=== PATIENT | female | born 1985 | race Caucasian/White ===

== ENCOUNTER 2016-11-06 20:43 | Emergency (ER) ==
[2016-11-06 20:48] VITALS: BP 127/87; TEMP 98.4; BMI 28.3
--- NOTE | 2016-11-06 21:23 | ED.PDOC ---
General ED Provider: Dr. NIKO REDDY Chief Complaint: Hand Laceration Stated Complaint: cut to rt hand, has tdap 2 years ago,. Time Seen by Physician: 21:21 Mode of Arrival: Walk-In Information Source: Patient Primary Care Provider: MIKE GUAJARDO Nursing and Triage Documentation Reviewed and Agree: Yes Skin Complaint Exam - Laceration/Upper Ext. Complaint/Exam Location of Injury: Right Mechanism of Injury: Laceration Symptoms Are: Still present Initial Severity: Mild Current Severity: Mild Aggravating: Movement Associated Signs and Symptoms: Denies: Fever, Chills, Erythema, Numbness, Tingling Differential Diagnoses: Laceration Review of Systems - Review Of Systems Constitutional: Reports: No symptoms Eyes: Reports: No symptoms Ears, Nose, Mouth, Throat: Reports: No symptoms Respiratory: Reports: No symptoms Cardiac: Reports: No symptoms GI: Reports: No symptoms : Reports: No symptoms Musculoskeletal: Reports: No symptoms Skin: Reports: No symptoms Neurological: Reports: No symptoms Endocrine: Reports: No symptoms Hematologic/Lymphatic: Reports: No symptoms All Other Systems: Reviewed and Negative Past Medical History - Past Medical History Previously Healthy: Yes Endocrine: Reports: None Cardiovascular: Reports: None Respiratory: Reports: None Hematological: Reports: None Gastrointestinal: Reports: None Genitourinary: Reports: None Neuro/Psych: Reports: None Musculoskeletal: Reports: None Cancer: Reports: None Last Menstrual Period: 10/11/16 - Surgical History General Surgical History: Reports: Cholecystectomy, Tonsillectomy, Orthopedic ( ankle ) - Family History Family History: Reports: None - Social History Smoking Status: Current every day smoker Smoking Cessation Counseling Time: > 3 min - 10 min Hx Substance Use: No Alcohol Screening: Occasionally - Immunizations Tetanus Shot up to Date: Yes (2014) Physical Exam - Physical Exam Appearance: Well-appearing, No pain distress, Well-nourished Eyes: VANIA, EOMI, Conjunctiva clear ENT: Ears normal, Nose normal, Oropharynx normal Respiratory: Airway patent, Breath sounds clear, Breath sounds equal, Respirations nonlabored Cardiovascular: RRR, Pulses normal, No rub, No murmur GI/: Soft, Nontender, No masses, Bowel sounds normal, No Organomegaly Musculoskeletal: Normal strength, ROM intact, No edema, No calf tenderness Skin: Warm, Dry, Normal color Neurological: Sensation intact, Motor intact, Reflexes intact, Cranial nerves intact, Alert, Oriented Psychiatric: Affect appropriate, Mood appropriate Procedures - Laceration/Wound Repair No standard instances Wound Description: Linear Wound Length (cm): 2 cm Wound Width: 0.2 cm Wound Explored: Clean Wound Prep: Saline Wound Repaired With: Dermabond Critical Care Note - Critical Care Note Total Time (mins): 0 Course - Course Vital Signs: Temp Pulse Resp BP Pulse Ox 11/06/16 20:44 98.4 F 91 H 20 127/87 98 Departure - Departure Time of Disposition: 21:23 Disposition: HOME SELF-CARE Discharge Problem: Laceration of hand Instructions: Laceration (ED) Condition: Stable Pt referred to PMD for follow-up: Yes Additional Instructions: Tylenol prn Rest If not better come back Allergies/Adverse Reactions: Allergies No Known Allergies Allergy (Verified 11/06/16 20:48) Home Medications: Ambulatory Orders 1 [No Reported Medications] 11/06/16 Disposition Discussed With: Patient
== END 2016-11-06 22:00 | disposition home or self-care (01) ==
LOC: ED 20:43
DX: S61.411A Laceration without foreign body of right hand, initial encounter (principal); W45.8XXA Other foreign body or object entering through skin, initial encounter; F17.210 Nicotine dependence, cigarettes, uncomplicated
CPT/HCPCS: 99283

== ENCOUNTER 2018-03-24 13:51 | Outpatient (CLI) ==
--- NOTE | 2018-03-24 23:10 | MRI ---
EXAM: MRI lumbar spine without IV contrast. DATE: 03/24/2018. HISTORY: Right-sided back pain. Right-sided pain. Burning into the right thigh. TECHNIQUE: Sagittal and axial T1W and T2W sequences of the lumbar spine along with sagittal IR and c oronal T2W sequences were obtained using 0.2 Rachel magnet. No IV contrast. COMPARISON: None. FINDINGS: There are five [id number] lumbar vertebra. Slight rightward curvature of the lumbar spine is noted. No acute lumbar fracture, subluxation, osseous malignancy, or pars interarticularis defect is demonstrated. Lumbar vertebra are normal in height. Bone marrow signal is normal. Disc d esiccation and minor disc space narrowing are present at L4-5. Mild disc space narrowing without dis c desiccation is observed at L5-S1. Remaining intervertebral discs are normal in height. No acute s acral fracture or stress reaction is identified. SI joints are unremarkable. Conus medullaris termi nates at L1 superior endplate. Visible spinal cord is normal. No retroperitoneal lymphadenopathy, paraspinal mass, or aortic aneurysm is detected. Paraspinal musc ulature is symmetric bilaterally. Visible portions of the liver, spleen, adrenal glands and left kid linnea reveal no abnormality. A T2W bright, T1W dark, 9.4 mm focus in the anterior cortex midzone right kidney is not fully characterized. No bowel obstruction or malignancy is apparent. Segmental analysis: T11-12: Normal. T12-L1: Normal. L1-2: Normal. L2-3: Normal. L3-4: Minor posterior disc bulge and minor facet arthropathy cause slight bilateral inferior foramin al narrowing. No central canal stenosis. L4-5: Small concentric disc bulge and minor facet arthropathy cause mild/moderate bilateral foramina l narrowing. No central canal stenosis. L5-S1: Posterior midline disc protrusion (3 mm AP x 8 mm transverse) causes mild central canal steno sis. Each foramen is patent. IMPRESSIONS: 1. Lumbar spine minor facet arthropathy and multilevel minor DDD. 2. Minor L3-4 and mild/moderate bilateral L4-5 foraminal stenoses. 3. Mild central canal stenosis at L5-S1. 4. Right kidney probable simple cyst, but not fully characterized.
== END 2018-03-24 13:52 | disposition home or self-care (01) ==
LOC: RAD 13:51
PROVIDERS: ATTEND Nurse Practitioner
DX: M54.41 Lumbago with sciatica, right side (principal)

== ENCOUNTER 2018-04-05 12:28 | Outpatient (CLI) ==
--- NOTE | 2018-04-05 13:33 | US ---
EXAM: Renal ultrasound. History: Right renal cyst. Comparison: MRI of the lumbar spine 03/24/2018 Technique: Multiple sonographic images through the kidneys were obtained. Color duplex Doppler was used to interrogate vascular flow. Findings: The right kidney measures 10.7 cm in long length demonstrating normal cortical echogenicity without e vidence for hydronephrosis or shadowing calculus. 1.2 cm anechoic right renal cyst. The left kidney measures 10.5 cm in long length demonstrating normal cortical echogenicity without ev idence for hydronephrosis, mass or shadowing calculus. The visualized bladder demonstrates no gross abnormality. Impression: 1. No acute sonographic findings. 2. Simple right renal cyst. No additional follow-up needed
== END 2018-04-05 12:29 | disposition home or self-care (01) ==
LOC: RAD 12:28
PROVIDERS: ATTEND Nurse Practitioner
DX: N28.1 Cyst of kidney, acquired (principal); M54.41 Lumbago with sciatica, right side; M51.27 Other intervertebral disc displacement, lumbosacral region